=== PATIENT | male | born 1965 | race American Indian/Alaskan Native ===

== ENCOUNTER 2018-06-13 10:20 | Emergency (ER) | payer MEDICARE ==
[2018-06-13 10:26] VITALS: BP 111/68
[2018-06-13 10:53] LABS: Basophils # (Auto) 0.1 K/mm3 (0.0-0.1); Basophils % (Auto) 1.6 % (0.0-1.8); Eosinophils # (Auto) 0.2 K/mm3 (0.0-0.4); Eosinophils % (Auto) 3.8 % (0.0-4.3); Hematocrit 29.4 % (35.5-45.6); Hemoglobin 9.7 gm/dl (11.8-15.2); Lymphocytes # (Auto) 1.1 K/mm3 (1.2-5.4); Lymphocytes % (Auto) 25.7 % (13.4-35.0); Mean Corpuscular HGB Conc 33 % (32-34); Mean Corpuscular Volume 82 fl (84-94); Monocytes # (Auto) 0.3 K/mm3 (0.0-0.8); Monocytes % (Auto) 7.6 % (0.0-7.3); Platelet Count 166 K/mm3 (140-440); Red Blood Count 3.61 M/mm3 (3.65-5.03)
[2018-06-13 11:13] LABS: Calcium 8.8 mg/dL (8.4-10.2)
--- NOTE | 2018-06-13 11:36 | Emergency Department Report ---
HPI - General Chief Complaint: Recheck/Abnormal Lab/Rx Time Seen by Provider: 06/13/18 11:24 - HPI HPI: 52-year-old -[place] male presents to the emergency department, sent in by his dialysis clinic, for elevated potassium levels. However the labs that they were concerned about were drawn on Friday prior to the patient getting dialysis. He admits that at that time he felt like his potassium might be high as he had some restless legs and paresthesias. However he had dialysis immediately after getting the blood work drawn and then had dialysis again yesterday, Friday. He is end-stage renal disease on hemodialysis on Friday/Friday/Friday in his distance learning coordinator is Dr. Nunez. At this time the patient has no complaints of any shortness of breath, edema, paresthesias or any complaints whatsoever. ED Past Medical Hx - Past Medical History Hx Hypertension: Yes Hx Renal Disease: Yes - Surgical History Additional Surgical History: Renal transplant, prostatectomy - Social History Smoking Status: Current Every Day Smoker Substance Use Type: None ED Review of Systems ROS: Stated complaint: POTASSIUM HIGH Other details as noted in HPI Comment: All other systems reviewed and negative Constitutional: denies: chills, fever Eyes: denies: eye pain, vision change ENT: denies: ear pain, throat pain Respiratory: denies: cough, shortness of breath Cardiovascular: denies: chest pain, palpitations Gastrointestinal: denies: abdominal pain, vomiting Genitourinary: denies: dysuria, discharge Musculoskeletal: denies: back pain, arthralgia Skin: denies: rash, change in color Neurological: denies: headache, numbness, paresthesias Physical Exam - Physical Exam Vital Signs: Vital Signs 06/13/18 10:25 Temperature 97.9 F Pulse Rate 92 H Respiratory 16 Rate Blood Pressure 111/68 O2 Sat by Pulse 97 Oximetry Physical Exam: GENERAL: The patient is well-developed well-nourished. HEENT: Normocephalic. Atraumatic. Patient has moist mucous membranes. EYES: Extraocular motions are intact. NECK: Supple. Trachea is midline. CHEST/LUNGS: Clear to auscultation. There is no respiratory distress noted. HEART/CARDIOVASCULAR: Regular. There is no tachycardia. There is no obvious murmur. ABDOMEN: Abdomen is soft, nontender. Patient has normal bowel sounds. There is no abdominal distention. SKIN: Skin is warm and dry. NEURO: The patient is awake, alert, and oriented. The patient is cooperative. The patient has no focal neurologic deficits. The patient has normal speech. MUSCULOSKELETAL: There is no tenderness or deformity. There is no evidence of acute injury. ED Course Vital Signs 06/13/18 10:25 Temperature 97.9 F Pulse Rate 92 H Respiratory 16 Rate Blood Pressure 111/68 O2 Sat by Pulse 97 Oximetry ED Medical Decision Making - Lab Data Result diagrams: 06/13/18 10:37 06/13/18 10:37 - Medical Decision Making This patient was sent in by his dialysis clinic for hyperkalemia that was found on blood work drawn on Friday, 4 days ago. Since that time the patient has had dialysis 2. He has no physical complaints at this time. His potassium came back at 4.9. The rest of his labs are unremarkable except for his chronic anemia of kidney disease and is chronic end-stage renal disease. Vital signs stable. Patient is safe for discharge home. He has been instructed to continue with his normal dialysis regimen and follow up with his distance learning coordinator as necessary. He will return to the ER with any concerns or any acute distress. Critical Care Time: No Critical care attestation.: If time is entered above; I have spent that time in minutes in the direct care of this critically ill patient, excluding procedure time. ED Disposition Clinical Impression: CKD (chronic kidney disease) Qualifiers: Chronic kidney disease stage: on chronic dialysis Qualified Code(s): N18.6 - End stage renal disease Anemia in chronic kidney disease (CKD) Qualifiers: Chronic kidney disease stage: on chronic dialysis Qualified Code(s): N18.6 - End stage renal disease Disposition: -01 TO HOME OR SELFCARE Is pt being admited?: No Condition: Stable Instructions: Anemia (ED), End-Stage Kidney Disease (ED) Additional Instructions: Please continue with your normal dialysis regiment. Return to the emergency department with any concerns or with any acute distress. Referrals: LEONORA CHAWLA MD [Staff Physician] - 2-3 Days Time of Disposition: 11:36
== END 2018-06-13 11:44 | disposition home or self-care (01) ==
LOC: ED 10:20
DX: I12.0 Hypertensive chronic kidney disease with stage 5 chronic kidney disease or end stage renal disease (principal); N18.6 End stage renal disease; F17.200 Nicotine dependence, unspecified, uncomplicated; Z99.2 Dependence on renal dialysis; Z86.2 Personal history of diseases of the blood and blood-forming organs and certain disorders involving the immune mechanism; Z90.79 Acquired absence of other genital organ(s)
CPT/HCPCS: 36415; 80048; 85025; 99283